=== PATIENT | female | born 1960 | race Caucasian/White ===

== ENCOUNTER 2017-03-14 11:47 | Inpatient (IN) | payer OTHER, MEDICARE ==
[~2017-03-14] VITALS: Ht 175.3 cm; Wt 61.9 kg
[2017-03-14] VITALS (10 sets, daily range): BP systolic 93–138; BP diastolic 43–80
--- NOTE | ~2017-03-14 | EKG ---
[address] [address] ELECTROCARDIOGRAM REPORT Name: DANY SYED Room #: 170-11 ADM IN M.R.#: [id number] Admission: 03/14/17 Attend Phys: Cayden Prather MD Discharge: Date of : 62 Report #: [id number] THIS REPORT FOR: //name// [facility] ED Test Date: 2017-03-14 Test Time: 13:36:52 Pat Name: DANY SYED Department: Room: 170 Gender: F Strategic Sourcing Manager: Jayy ARTEAGA : 1960 Requested By: Odessa Ivy Order Number: [id number] MD: Mal Weber Measurements Intervals [place] Rate: 65 P: 56 FL: 164 QRS: 87 QRSD: 105 T: 29 QT: 462 QTc: 481 Interpretive Statements Sinus rhythm Probable left atrial enlargement Low voltage, extremity leads Nonspecific T abnrm, anterolateral leads Compared to ECG 02/05/2016 14:58:59 Low QRS voltage now present Electronically Signed On 03-14-2017 15:47:18 SEMICONDUCTOR WAFERS SAW OPERATOR by Mal Weber [email or web address] <ELECTRONICALLY SIGNED> By: Mal Weber MD 03/14/17 1547 1336 1336 Mal Weber MD /EPI
--- NOTE | ~2017-03-14 | HC ---
[facility] [address] [place] [address] CONSULTATION Name: DANY SYED Room #: 444-P ADM IN M.R.#: [id number] Admission: 03/14/17 Attend Phys: Cayden Prather MD Discharge: Date of : 62 Report #: [id number] THIS REPORT FOR: //name// CC: FAM unknown Cayden Prather DATE OF SERVICE: 03/15/[address] Prather, [facility] ICU, Room 239. SUBJECTIVE: A 56-year-old white female with a long history of diabetes mellitus. The patient was extremely angry and somewhat antagonist poor historian. She states she has had diabetes for 20-30 years and has been on insulin the entire time. She is supposed to be on a sliding scale of rapid-acting insulin with meals and 20 units of Glargine at bedtime. However, she states that she has not taken her insulin recently because she has not been eating. She also has missed several dialysis appointments. It is not clear how long she has been on dialysis. Apparently compliance is a chronic problem according to the chart and prior notes. The patient is unable to provide much information regarding diet, activity, treatment, blood sugars, hemoglobin A1c or any other helpful medical history. She is also quite antagonistic when asked to provide information about her diabetes, stating that she is more capable of controlling her diabetes than any of the physicians in the Medical Center. Since admission, the patient has been treated with limited IV fluids because of her renal failure and intravenous insulin with a drop in glucose from approximately 700 down to as low as 20. She has not received any insulin since this morning while blood sugars have increased up into the 300 range. CURRENT MEDICATIONS: At the time of consultation included metoclopramide, promethazine, hydrocodone/acetaminophen, polyethylene glycol, ondansetron, insulin as mentioned above, sodium bicarbonate and possibly other medication. Otherwise, I am unable to provide any further useful medical history. OBJECTIVE: LABORATORY DATA: From earlier today, glucose at the time of admission was approximately 729, and decreased significantly with intravenous insulin. Most recent lab shows sodium 133, potassium 4.8, chloride 97, and CO2 23. Initial arterial pH was 7.208. No serum ketone level was drawn. PHYSICAL EXAMINATION: Thin, 56-year-old white female, in no acute distress, but somewhat antagonistic. The patient is afebrile. Heart rate 65 and regular, blood pressure 117/62. Height and weight are yet to be determined. Exam is [address] [address] CONSULTATION Name: DANY SYED Room #: 444-P [facility] IN [facility]#: [id number] Admission: 03/14/17 Attend Phys: Cayden Prather MD Discharge: Date of : 62 Report #: [id number] difficult due to lack of patient cooperation and her irritability. ASSESSMENT: 1. Diabetes mellitus, out of control due to poor compliance. The patient was admitted with acidosis and most likely ketoacidosis due to poor compliance, negligence, etc. 2. Complications of diabetes including chronic renal failure, on dialysis, although patient has missed the last several scheduled dialysis. 3. Chronic poor compliance and antagonism. PLAN: 1. Will attempt to evaluate prior control with hemoglobin A1c and fructosamine. Will also check to see whether the patient is making endogenous insulin with C-peptide. 2. Will attempt to readjust insulin to improve glucose control, although it is not clear how much patient opposition will complicate that process and whether she will allow me to use my expertise in an attempt to control blood sugars or not. Hopefully, she will allow good medical science to win and out over her preconceived ideas. Thank you very much for this consultation. I will continue to follow the patient with you for attempted management of diabetes mellitus. <ELECTRONICALLY SIGNED> By: Adair Dunne MD 03/16/17 0939 1720 [id number] Adair Dunne MD /nt
--- NOTE | ~2017-03-14 | HC ---
[facility] [place] [address] [place] [address] CONSULTATION Name: DANY SYED Room #: 444-P ADM IN M.R.#: [id number] Admission: 03/14/17 Attend Phys: Cayden Prather MD Discharge: Date of : 62 Report #: [id number] THIS REPORT FOR: //name// CC: Dr. Remy Castro [facility] Jadon Izquierdo MD PHYSICIAN REQUESTING CONSULTATION: Cayden Prather M.D. REASON FOR CONSULTATION: History of breast cancer. HISTORY OF PRESENT ILLNESS: The patient is a very pleasant 56-year-old female with a history of stage III node-positive, ER/NC negative, HER-2 positive breast cancer, who was admitted with a febrile illness with 2-3 days of fever, nausea, vomiting, diarrhea and sugars out of control. The patient was admitted through the Emergency Room. She had completed her last dose of Herceptin antibody portion of her chemotherapy about 2 weeks ago. She denied any new headache, any mouth sores, any bleeding, any new skin rash or any new arm or leg swelling. She feels like maybe she caught something from someone at the dialysis clinic. She is currently in the ICU at [facility]. PAST MEDICAL HISTORY: Past history is notable for the history of the breast cancer, originally diagnosed in 07/2015 at [facility] with an ultrasound-guided biopsy. The tumor, as mentioned, was ER/NC negative, HER-2 positive with a Ki-67 of 73.7%. She had bilateral mastectomies in 07/2015 with a finding of 5 of 11 lymph nodes involved by cancer and tumor size of 60 mm. She began Taxol, Herceptin and Perjeta approximately 11/18/2015. Her last dose of cytotoxic chemotherapy was around 02/12/2016. She had a completion axillary lymph node dissection in 03/2016, without finding any more cancer. She continued Herceptin. She completed radiation therapy on 08/19/2016. Her last dose of Herceptin, I believe, was on 03/03/2017. She also has a history of hyperparathyroidism and has declined parathyroidectomy. 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 She also has a history of chronic renal disease, requiring chronic dialysis. In the past, she had been on peritoneal dialysis and also the transplant, but has been back on hemodialysis for, I believe, about 5 years. Also history of essential hypertension, gastroparesis and right upper extremity lymphedema. SOCIAL HISTORY: Not currently working. Nonsmoker. Rare alcohol. Lives alone. FAMILY HISTORY: Diabetes. [address] [address] CONSULTATION Name: DANY SYED LANEY Room #: 444-P [facility] IN M.R.#: [id number] Admission: 03/14/17 Attend Phys: Cayden Prather MD Discharge: Date of : 62 Report #: [id number] MEDICATIONS: Medications at this time in the hospital currently include metoclopramide 5 mg a.c. and at bedtime p.o., promethazine p.r.n., heparin 5000 units b.i.d. subQ, hydrocodone p.r.n., Tylenol p.r.n., MiraLax daily and Zofran p.r.n. PHYSICAL EXAMINATION: GENERAL: The patient appears her stated age. She is currently in the ICU. VITAL SIGNS: Height is 5 feet 9, 175.3 cm. Weight is 136 pounds or 61.86 kilograms. She has been afebrile since she has been here since about noon yesterday. Recent blood pressure 117/60, O2 sat 100%, respirations 17 and pulse 65. MOOD: She is pleasant and conversant. NEUROLOGIC: Speech pattern normal. Moving extremities. LUNGS: Appear to be clear, symmetric expansion. HEART: Regular rate. ABDOMEN: Nontender. EXTREMITIES: Have some trace edema. LABORATORY DATA: Lab review shows a BUN of 85 and creatinine 11.1. AST of 56, total bilirubin 0.5, phosphorus 6.9, alkaline phosphatase 108 and ALT 29. Albumin 2.6. Lactic acid 1.2. White blood count on admission 5.5, hemoglobin 8.7, MCV 94.4 and platelets 166,000. Differential does not appear with any acute forms. U/A not available. Chest x-ray showed no acute changes. ASSESSMENT AND PLAN: 1. History of stage III, ER/NC negative, HER-2 positive breast cancer, has now completed both cytotoxic chemotherapy, radiation therapy and most recently a year of Herceptin. No indication for anti-hormone therapy, not known to be recurrent. Continue surveillance monitoring. 2. Febrile illness with nausea, vomiting and hyperglycemia. Defer management of the electrolytes and fluid replacement per others. Afebrile here and not currently on antibiotics. 3. Hypertension. Medications per others. 4. Renal failure. Continue hemodialysis per others. 5. Hyperparathyroidism. Defer management to others. 6. Anemia. At this point has been managed with transfusions, avoiding erythropoietin because of potential higher cancer recurrence with its use. We will follow with you. <ELECTRONICALLY SIGNED> By: Bakari Marmolejo MD 03/16/17 0801 0845 09 Bakari Marmolejo MD /maria elena
--- NOTE | ~2017-03-14 | HC ---
[facility] [address] [place] [address] CONSULTATION Name: DANY SYED Room #: 444-P [facility] IN M.R.#: [id number] Admission: 03/14/17 Attend Phys: Cayden Prather MD Discharge: 03/18/17 Date of : 62 Report #: [id number] THIS REPORT FOR: //name// CC: [facility] FAM unknown Cayden Marmolejo MD DATE OF SERVICE: 03/14/2017 NEPHROLOGY CONSULTATION REASON FOR CONSULTATION: End-stage renal disease. HISTORY OF PRESENT ILLNESS: This is a 56-year-old female who has a very complex medical history. She came into the Emergency Room today because of recurring nausea and vomiting. She says this was occurring frequently over the past several days. She also had intermittent diarrhea. She had a course of fevers and chills. She has had some mild cough. In the Emergency Room, influenza was negative. She has a long history of type 1 diabetes mellitus and has always been insulin-dependent. Because she felt bad, she was not checking her sugars and she was not taking any insulin. In the Emergency Room, she presented with a glucose of 729. She was started on an insulin drip. Blood pressure was actually on the low side running 102/64, although her heart rate was only 62. She was given about 1.7 liters of IV fluids. Blood pressure is better now and heart rate is good. She is oxygenating adequately. The patient also has end-stage renal disease. She is a chronic hemodialysis patient. She last dialyzed on 03/09/2017. She missed dialysis on 03/11/2017. She was scheduled today. She said she just felt too sick to come in for dialysis at the last treatment of last week. She dialyzes using a right internal jugular vein tunneled dialysis catheter, which has been in for a number of years. Unfortunately, she has refused to get a peripheral access. She has escaped major infection complications of that catheter. Her dialysis is highlighted by the fact that she does not like fluid removal. She runs very high pressure much of the time, often times 170-190 systolic or higher at dialysis and still refuses fluid removal. She has historically poor compliance with diet and medications. In fact, she will not take any phosphate binders and she always runs a high phosphorus level. She also has a history of a kidney pancreas transplant many years ago. Both of those have now failed. She is back on insulin. She is back on dialysis. She is fully anuric. PAST MEDICAL HISTORY: Type 1 diabetes as noted above complicated by severe retinopathy, peripheral neuropathy, gastroparesis. Obviously, the diabetic [facility] [address] [place] [address] CONSULTATION Name: KUNALDANY LANEY Room #: 444-P [facility] IN M.R.#: [id number] Admission: 03/14/17 Attend Phys: Cayden Prather MD Discharge: 03/18/17 Date of : 62 Report #: [id number] nephropathy leading to original peritoneal dialysis, then the kidney pancreas transplant and now back on hemodialysis. More recently, she has been suffering from breast cancer. She has had bilateral mastectomies done at [facility]. She had a course of radiation therapy. Now, she has been getting some chemotherapy with Dr. Marmolejo with Herceptin. Her last dose was early last week, which would be about 1 week ago now. She has severe hypertension. She has severe hyperphosphatemia and severe secondary hyperparathyroidism. Again, she does not want to take phosphate binders. We have talked about getting a parathyroidectomy done. She also has anemia related to her end-stage renal disease because of the concerns of mitogenic properties of erythropoiesis stimulating agents, she does not want to take those, so she gets occasional transfusions. MEDICATIONS ON ADMISSION: Include some Lantus and some Humalog, which she takes on a variable scale and obviously has not taken any recently. She takes some Xanax p.r.n. She takes some Pepcid 20 mg. She was getting some Hectorol 4 mg 3 times a week IV at dialysis in addition to the Herceptin. ALLERGIES AND INTOLERANCES: NONE ACTUALLY, ALTHOUGH SHE CLAIMS EPINEPHRINE CAUSES HER HEART TO RACE ( ONE WOULD EXPECT). FAMILY HISTORY: Positive for diabetes in her father. SOCIAL HISTORY: The patient is single, lives in [place], [place]. She has been medically disabled with all these recent problems. She is a nonsmoker. REVIEW OF SYSTEMS: Started feeling worse about 4 days ago for symptoms were some mild cough, fever, nausea, vomiting, intermittent diarrhea and this has left her very weak and fatigued. She has been battling a long course of treatment for her breast cancer. This has left her very weak. She is not nearly as active as she used to be. Over the weekend, she has had little intake of food and fluids. She had the fever and chills as noted above. No overt blood loss. She reports she has some swelling in her right arm that she associates with some lymphedema since her mastectomy. She also had some skin reactions on both forearms, which have been kind of an irritating rash with some eschar developed. PHYSICAL EXAMINATION: GENERAL: Acutely ill appearing female seen in the Intensive Care Unit. VITAL SIGNS: Most recent blood pressure 138/71, heart rate 68, oxygen saturation 97%, respiratory rate 16. HEENT: Shows pupils are 2 mm, reactive. Sclerae nonicteric. Oral mucosa is moist at this time. I see no lesions. NECK: Supple. She has a right internal jugular vein tunneled dialysis catheter in place. She has a left-sided infusion port in place on the left chest. CHEST: Lungs are fairly clear bilaterally. [facility] [address] [place] [address] CONSULTATION Name: DANY SYED Room #: 444-P [facility] IN [facility].#: [id number] Admission: 03/14/17 Attend Phys: Cayden Prather MD Discharge: 03/18/17 Date of : 62 Report #: [id number] CARDIOVASCULAR: Heart has a regular rate and rhythm. Bilateral mastectomies are present. ABDOMEN: Bowel sounds are diminished. No overt point tenderness, guarding or rebound. EXTREMITIES: Show no peripheral edema. She has absent pedal pulses. NEUROLOGIC: She is awake, alert and reactive. Recognizes me immediately, has been lethargic. LABORATORY DATA: On presentation, sodium 126, potassium 5.5, chloride 87, bicarb 16, BUN 85, creatinine 11.1, glucose 729. After some IV insulin, sodium 130, potassium 4.2, chloride 102, bicarb 19 and glucose down to 672 and it is lower than that now. Calcium 6.8, phosphorus 8.4, magnesium 2.5, total protein 6.4, albumin 2.9. Hemoglobin 8.1; hematocrit 24.7; white count 5.5; platelets 156,000. Blood gas: The pH 7.21, pCO2 of 40.7, pO2 of 89.2. Lactate 1.54. ASSESSMENT: 1. Severe hyperglycemia in this type 1 diabetic. She does have some acidosis. Part of it is related to her high glucose. Part of it is related to her end-stage renal disease and lack of dialysis. She had associated hyperkalemia and hyponatremia with that. Both of those are actually correcting with insulin treatment and her sugar coming down. This patient is anuric. She has already gotten some volume. Blood pressure is good. Volume is fine on exam. Because she is anuric, she does not need additional aggressive intravenous fluid replacement. If her blood pressure drops, that would certainly be appropriate, but at this point, her blood pressure is good. She needs a continuous insulin infusion to correct her hyperglycemia. 2. End-stage renal disease, fine on dialysis. We will contact the dialysis nurse. I need to get her dialyzed late tonight or first thing in the morning. She is not in extremis. She is oxygenating well. Again, blood pressure is fairly good for her. So, we will make that choice and get those orders in. 3. Viral illness with recent fevers, chills, cough, nausea, vomiting, diarrhea. Most of those symptoms are all improving at this time. Influenza A and B were negative in the Emergency Room. She seems to be on the improving side of the viral illness. 4. Long-standing diabetes mellitus with severe peripheral neuropathy and gastroparesis. The gastroparesis has resulted in prior hospitalizations with recurrent vomiting. She was given Zofran. If I recall, she has not had a good response to Reglan in the past, although we may need to try most of the Zofran as long as possible. 5. Breast cancer, currently getting Herceptin. She has had bilateral mastectomies and radiation therapy. 6. Anemia, transfusion dependent at this point. She is refusing the erythropoietin due to potential mitogenic factors. Does not need transfusion at this time, although if she dilutes out at all, she may need transfusion. 7. Hypertension, long-standing, severe and always volume related, although she has refused to get volume off with dialysis. Blood pressure is remarkably good [facility] [address] [place] [address] CONSULTATION Name: DANY SYED Room #: 444-P [facility] IN M.R.#: [id number] Admission: 03/14/17 Attend Phys: Cayden Prather MD Discharge: 03/18/17 Date of : 62 Report #: [id number] at this time, so we will try to leave around this volume. 8. Severe hyperphosphatemia and secondary hyperparathyroidism, ongoing alcantar with her as far as treatment of this. 9. Prior kidney pancreas transplant, neither organ are active at this time. No longer on immunosuppression. PLAN: 1. We will stop her IV fluids given p.r.n. hypotension. 2. Continue insulin infusion, closely watch sugars. 3. Dialysis several days in a row to catch up on her dialysis needs. 4. Watch for need for transfusion. 5. We will follow along closely in the care of this very ill individual. <ELECTRONICALLY SIGNED> By: Magnus Kim MD 03/21/17 0721 1826 0410 Magnus Kim MD /nt
--- NOTE | ~2017-03-14 | EKG ---
[address] [place] [address] ELECTROCARDIOGRAM REPORT Name: DANY SYED Room #: 444-P [facility] IN M.R.#: [id number] Admission: 03/14/17 Attend Phys: Cayden Prather MD Discharge: Date of : 62 Report #: [id number] THIS REPORT FOR: //name// [facility] Test Date: 2017-03-15 Test Time: 09:34:47 Pat Name: DANY SYED Department: Room: 444 Gender: F Physical Integration Practitioner: FLOR : 1960 Requested By: Mal Weber Order Number: [id number] MD: Bradly Escobar Measurements Intervals [place] Rate: 66 P: 59 [place]: 144 QRS: 23 QRSD: 97 T: 33 QT: 467 QTc: 490 Interpretive Statements Sinus rhythm Ventricular premature complex Low voltage, extremity leads Borderline prolonged QT interval Baseline wander in lead(s) V5 Compared to ECG 03/14/2017 13:36:52 Ventricular premature complex(es) now present Electronically Signed On 03-16-2017 8:52:51 GRAPHIC USER INTERFACE DESIGNER by Bradly Escobar [email or web address] <ELECTRONICALLY SIGNED> By: Bradly Escobar MD, [facility] 03/16/17 0852 0934 0934 Bradly Escobar MD, [facility] /EPI
--- NOTE | ~2017-03-14 | 2DMMODE ---
[facility] [address] [place] [address] 2 D/M-MODE ECHOCARDIOGRAM Name: DANY SYED Room #: 170-11 ADM IN M.R.#: [id number] Admission: 03/14/17 Attend Phys: Cayden Prather MD Discharge: Date of : 62 Date of Service: 03/14/17 1537 Report #: [id number] THIS REPORT FOR: //name// APPROVED REPORT Study performed: 03/14/2017 14:44:18 EXAM: Comprehensive 2D, Doppler, and color-flow Echocardiogram Patient Location: ER Room #: 11 Status: routine BSA: 1.70 HR: 68 bpm BP: 108/71 mmHg Rhythm: NSR Other Information Study Quality: Good Indications Elevated BNP, short of air, elevated troponin. DM, HTN. 2D Dimensions RVDd: 43.62 mm LVEF(%): 74.04 (>50%) IVSd: 12.13 (7-11mm) LVOT Diam: 19.11 (18-24mm) LVDd: 43.88 mm PWd: 13.01 (7-11mm) LVDs: 25.13 (25-40mm) Aortic Root: 28.93 mm Suero's LVEF: 74.04 % Volumes Left Atrial Volume (Systole) Single Plane 4CH: 71.21 mL Single Plane 2CH: 58.04 mL LA ESV Index: 41.00 mL/m2 Aortic Valve AoV Peak Celso.: 1.72 m/s AO Peak Gr.: 11.78 mmHg LVOT Max P.56 mmHg LVOT Max V: 1.46 m/s AYUSH Vmax: 2.44 cm2 Mitral Valve E/A Ratio: 1.3 MV Decel. Time: 240.18 ms [facility] [place] [address] 2 D/M-MODE ECHOCARDIOGRAM Name: DANY SYED LANEY Room #: 170- ADM IN M.R.#: [id number] Admission: 03/14/17 Attend Phys: Cayden Prather MD Discharge: Date of : 62 Date of Service: 03/14/17 1537 Report #: [id number] MV E Max Celso.: 0.89 m/s MV A Celso.: 0.67 m/s MV PHT: 69.65 ms IVRT: 83.04 ms Pulmonary Valve PV Peak Celso.: 0.90 m/s PV Peak Gr.: 3.27 mmHg Pulmonary Vein P Vein S: 0.49 m/s P Vein D: 0.27 m/s P Vein S/D Ratio: 1.81 Tricuspid Valve TR Peak Celso.: 2.69 m/s RAP Estimate: 10.00 mmHg TR Peak Gr.: 29.01 mmHg PA Pressure: 39.00 mmHg Left Ventricle The left ventricle is normal size. There is normal LV segmental wall motion. Mild concentric left ventricular hypertrophy. Left ventricular systolic function is normal. LVEF is 65%. The left ventricular diastolic function is normal. Right Ventricle The right ventricle is normal size. The right ventricular systolic function is normal. Atria Left atrium is mild to moderately dilated. Right atrium is mildly dilated. Catheter is present in the right atrium. Aortic Valve Aortic valve is mildly calcified. No aortic regurgitation is present. There is no aortic valvular stenosis. Mitral Valve Mild mitral annular calcification. Trace mitral regurgitation. Tricuspid Valve The tricuspid valve is normal in structure. Moderate tricuspid regurgitation. Estimated PAP is 40mmHg. Pulmonic Valve The pulmonary valve is normal in structure. There [place] [address] 2 D/M-MODE ECHOCARDIOGRAM Name: DANY SYED Room #: 170-11 ADM IN M.R.#: [id number] Admission: 03/14/17 Attend Phys: Cayden Prather MD Discharge: Date of : 62 Date of Service: 03/14/17 1537 Report #: [id number] valvular regurgitation. Great Vessels The aortic root is normal in size. Ascending aorta is not well visualized. IVC is dilated and collapses >50% with inspiration. Pericardium There is no pericardial effusion. <Conclusion> Left ventricular systolic function is normal. There is normal LV segmental wall motion. Mild concentric left ventricular hypertrophy. LVEF 65%. Both atria are mildly dilated. Catheter is present in the right atrium. Aortic valve is mildly calcified. No aortic regurgitation or stenosis Mild mitral annular calcification. Trace mitral regurgitation. Moderate tricuspid regurgitation. Estimated pulmonary artery pressure is 40mmHg. There is no pericardial effusion. <ELECTRONICALLY SIGNED> By: Bradly Escobar MD, FACC 03/14/17 1537 [id number] Bradly Escobar MD, FACC /INF
[~2017-03-14 11:47] MED LIST: AMLODIPINE BESYL5 MG PO; ANTACID650 MG PO; BIOTIN1000 MCG PO; CELLCEPT 250 M250 M1 PO; CELLCEPT500 MG PO; CIPROFLOXACIN500 M1 PO; COREG6.25 MG PO; CYCLOBENZAPRINE5 MG PO; CYCLOSPORINE25 M1 PO; DIOVAN160 MG PO; DULCOLAX STOOL100 MG PO; KEFLEX500 MG PO; LASIX 40 MG TAB40 M1 PO; LEVEMIR SQ; LEVEMIR SUBQ; NEORAL100 MG PO; NEPHROCAPS SOFT1 CAP PO; NORVASC 5 MG TAB5 MG PO; NOVOLOG100 UNIT/1; NOVOLOG100 UNIT/1 SQ; PAIN & FEVER325 MG PO; PREDNISONE 5 MG5 M1 PO; REGLAN 10 MG TA10 MG PO; RENVELA800 MG PO; ULTRAM 50MG TAB50 MG PO; ZOFRAN ODT4 MG PO; [UNRECOGNIZED DRUG - OTHER] PO
[2017-03-14 13:01] LABS: ABSOLUTE NEUTROPHILS 4.2 thou/uL (1.4-8.2); BASOPHILS 0.4 % (0.0-2.0); HEMATOCRIT 24.7 % (37.0-47.0); HEMOGLOBIN 8.1 gm/dL (12.0-15.0); LYMPHOCYTES 15.7 % (24.0-44.0); MCH 32.5 pg (26.0-34.0); MCV 98.6 fL (80.0-100.0); PLATELET COUNT 156 thou/uL (150-400); POLYS 75.9 % (36.0-66.0); RDW 13.8 % (10.5-14.5); WBC 5.5 thou/uL (4.0-11.0)
[2017-03-14 13:14] LABS: CALCIUM 6.9 mg/dL (8.5-10.1); CREATININE 11.1 mg/dL (0.6-1.0); POTASSIUM 5.5 mmol/L (3.5-5.1)
[2017-03-14 13:17] LABS: TOTAL BILIRUBIN 0.5 mg/dL (<0.1-1.0); TOTAL PROTEIN 6.4 g/dL (6.4-8.2)
[2017-03-14 14:43] LABS: CHOLESTEROL 116 mg/dL (<200); HDL CHOLESTEROL 27 mg/dL (>40); LDL CHOLESTEROL 30 mg/dL (<100); TC:HDL 4.3 Ratio (Not establshd); TRIGLYCERIDE 296 mg/dL (<150); VLDL 59 mg/dL (<40)
[2017-03-14 14:47] LABS: SERUM ASSESSMENT Clear
[2017-03-14] MEDS ORDERED: LANTUS SUBQ (15:28)
[2017-03-14 16:44] LABS: BE(vivo) -11.2 mmol/L (-2 to +3); HCO3 15.8 mmol/L (22.0-26.0); PCO2 40.7 mmHg (35.0-45.0); PO2 89.2 mmHg (80.0-100.0); pH 7.208 (7.360-7.450)
[2017-03-14 17:12] LABS: ALBUMIN 2.9 g/dL (3.4-5.0); CALCIUM 6.8 mg/dL (8.5-10.1); PHOSPHORUS 8.4 mg/dL (2.5-4.9); POTASSIUM 4.2 mmol/L (3.5-5.1)
[2017-03-15] VITALS (15 sets, daily range): BP systolic 95–174; BP diastolic 55–84
[2017-03-15 05:15] LABS: HEMATOCRIT 25.7 % (37.0-47.0); HEMOGLOBIN 8.7 gm/dL (12.0-15.0); MCHC 33.9 g/dL (28.0-37.0); MCV 94.4 fL (80.0-100.0); RBC 2.72 mil/uL (4.20-5.00); RDW 13.3 % (10.5-14.5); WBC 6.4 thou/uL (4.0-11.0)
[2017-03-15 05:24] LABS: ALBUMIN 2.6 g/dL (3.4-5.0); CREATININE 11.4 mg/dL (0.6-1.0); PHOSPHORUS 6.9 mg/dL (2.5-4.9)
[2017-03-16 03:00] VITALS: BP 193/94
[2017-03-16 07:52] LABS: ABSOLUTE NEUTROPHILS 4.1 thou/uL (1.4-8.2); BASOPHILS 0.4 % (0.0-2.0); HEMATOCRIT 23.2 % (37.0-47.0); HEMOGLOBIN 7.8 gm/dL (12.0-15.0); LYMPHOCYTES 15.8 % (24.0-44.0); MCH 31.8 pg (26.0-34.0); MCHC 33.4 g/dL (28.0-37.0); MONOCYTES 9.7 % (1.0-8.0); PLATELET COUNT 143 thou/uL (150-400); POLYS 74.1 % (36.0-66.0); RBC 2.44 mil/uL (4.20-5.00); RDW 13.6 % (10.5-14.5); WBC 5.6 thou/uL (4.0-11.0)
[2017-03-16 08:00] LABS: ALBUMIN 2.8 g/dL (3.4-5.0); CALCIUM 7.5 mg/dL (8.5-10.1); CREATININE 6.5 mg/dL (0.6-1.0); PHOSPHORUS 4.5 mg/dL (2.5-4.9); POTASSIUM 3.7 mmol/L (3.5-5.1)
[2017-03-16 09:55] VITALS: BP 148/87
[2017-03-16 17:43] VITALS: BP 182/99
[2017-03-16 19:12] VITALS: BP 178/106
[2017-03-17 04:01] VITALS: BP 187/105
[2017-03-17 06:41] VITALS: BP 166/96
[2017-03-17 08:26] VITALS: BP 171/107
[2017-03-17] MEDS ORDERED: LOPERAMIDE 2 MG2 M1 PO (13:48)
[2017-03-17] MEDS ORDERED: NEPHROCAPS SOFT1 CAP PO (13:55)
[2017-03-17 15:53] VITALS: BP 139/84
[2017-03-17 20:19] VITALS: BP 130/55
[2017-03-18 04:40] VITALS: BP 160/86
[2017-03-18 08:00] VITALS: BP 148/85
[2017-03-18 16:00] VITALS: BP 148/77
[2017-03-18 18:31] VITALS: BP 148/77
== END 2017-03-18 18:44 | DRG 291 ==
LOC: ER 11:47 → ICU 13:56 → EROBS 13:56 → ICU 16:06 → 4S 03-15 18:20
PROVIDERS: Hospitalist; Internal Medicine Cardiovascular Disease; Internal Medicine Nephrology; Physician Assistant
PROC: 5A1D70Z Performance of Urinary Filtration, Intermittent, Less than 6 Hours Per Day (ICD-10-PCS; principal; 2017-03-14)
PROC: 5A1D70Z Performance of Urinary Filtration, Intermittent, Less than 6 Hours Per Day (ICD-10-PCS; 2017-03-15)
PROC: 5A1D70Z Performance of Urinary Filtration, Intermittent, Less than 6 Hours Per Day (ICD-10-PCS; 2017-03-17)
DX: I13.2 Hypertensive heart and chronic kidney disease with heart failure and with stage 5 chronic kidney disease, or end stage renal disease (principal); E10.10 Type 1 diabetes mellitus with ketoacidosis without coma; N18.6 End stage renal disease; E87.1 Hypo-osmolality and hyponatremia; N25.81 Secondary hyperparathyroidism of renal origin; Z94.83 Pancreas transplant status; Z94.0 Kidney transplant status; D64.9 Anemia, unspecified; E87.70 Fluid overload, unspecified; E83.51 Hypocalcemia; J20.8 Acute bronchitis due to other specified organisms; E87.5 Hyperkalemia; E10.43 Type 1 diabetes mellitus with diabetic autonomic (poly)neuropathy; K31.84 Gastroparesis; E83.39 Other disorders of phosphorus metabolism; Z60.2 Problems related to living alone; E10.319 Type 1 diabetes mellitus with unspecified diabetic retinopathy without macular edema; I50.9 Heart failure, unspecified; K21.9 Gastro-esophageal reflux disease without esophagitis; I95.1 Orthostatic hypotension; E10.22 Type 1 diabetes mellitus with diabetic chronic kidney disease; Z79.4 Long term (current) use of insulin; Z85.3 Personal history of malignant neoplasm of breast; Z90.13 Acquired absence of bilateral breasts and nipples; Z88.8 Allergy status to other drugs, medicaments and biological substances; Z83.3 Family history of diabetes mellitus; Z79.82 Long term (current) use of aspirin; Z79.899 Other long term (current) drug therapy; Z92.21 Personal history of antineoplastic chemotherapy; Z92.3 Personal history of irradiation
CPT/HCPCS: 10078; 10102; 32100

== ENCOUNTER 2017-05-30 17:45 | Emergency (ER) | payer OTHER, MEDICARE ==
[~2017-05-30] VITALS: Ht 175.3 cm; Wt 60.8 kg
[~2017-05-30 17:45] MED LIST changes: +LANTUS SUBQ; +LOPERAMIDE 2 MG2 M1 PO
[2017-05-30 17:52] VITALS: BP 172/109
[2017-05-30 18:19] LABS: HEMATOCRIT 25.5 % (37.0-47.0); HEMOGLOBIN 8.8 gm/dL (12.0-15.0); MCH 33.2 pg (26.0-34.0); MCHC 34.6 g/dL (28.0-37.0); PLATELET COUNT 240 thou/uL (150-400); RBC 2.66 mil/uL (4.20-5.00); RDW 15.9 % (10.5-14.5); WBC 5.3 thou/uL (4.0-11.0)
[2017-05-30 18:30] LABS: CALCIUM 8.2 mg/dL (8.5-10.1); CREATININE 3.9 mg/dL (0.6-1.0); POTASSIUM 4.9 mmol/L (3.5-5.1)
[2017-05-30 18:36] LABS: ALBUMIN 3.1 g/dL (3.4-5.0); DIRECT BILIRUBIN 0.1 mg/dL (<0.1-0.3); TOTAL BILIRUBIN 0.5 mg/dL (<0.1-1.0); TOTAL PROTEIN 7.2 g/dL (6.4-8.2)
[2017-05-30 18:43] LABS: ABSOLUTE NEUTROPHILS 3.6 thou/uL (1.4-8.2)
[2017-05-30 18:44] LABS: ANISOCYTOSIS 1+; POLYCHROMASIA SLIGHT
[2017-05-30 21:39] VITALS: BP 112/76
== END 2017-05-30 21:42 | disposition home or self-care (01) ==
LOC: ER 17:45 → EROBS 21:04 → ER 21:04
PROVIDERS: Emergency Medicine
DX: R41.82 Altered mental status, unspecified (principal); R53.1 Weakness; R60.0 Localized edema; N18.6 End stage renal disease; E10.22 Type 1 diabetes mellitus with diabetic chronic kidney disease; E10.42 Type 1 diabetes mellitus with diabetic polyneuropathy; I12.0 Hypertensive chronic kidney disease with stage 5 chronic kidney disease or end stage renal disease; Z99.2 Dependence on renal dialysis; Z85.3 Personal history of malignant neoplasm of breast; Z88.8 Allergy status to other drugs, medicaments and biological substances

== ENCOUNTER 2017-06-01 14:30 | Inpatient (IN) | payer OTHER, MEDICARE ==
[~2017-06-01] VITALS: Ht 175.3 cm; Wt 61.1 kg
--- NOTE | ~2017-06-01 | HC ---
[facility] [place] [address] CONSULTATION Name: DANY SYED Room #: 200-I [facility] IN M.R.#: [id number] Admission: 06/01/17 Attend Phys: Cayden Prather MD Discharge: 06/05/17 Date of : 62 Report #: [id number] THIS REPORT FOR: //name// CC: Jadon Prather DATE OF SERVICE: 06/01/2017 REASON FOR CONSULTATION: End-stage renal disease. HISTORY OF PRESENT ILLNESS: This is a 57-year-old female who presented today to the Emergency Room with weakness. The patient is well known to our service. In fact, she was just in the hospital most recently on 03/14/2017 for a several day stay. I saw her in consultation at that time. At that time, she had stopped her insulin and her blood sugars were up to 729. She has longstanding type 1 diabetes mellitus. She has end-stage renal disease. She cut her dialysis short by about an hour and a half, two days ago on 05/30/2017. She missed dialysis today. I have checked with the dialysis unit. She did show up for dialysis on 05/27/2017. She has had progressively large volume increases due to intake. She has been taking 4 liters or more off per dialysis treatment. In spite of that, her blood pressure tends to run very high. She tells me she has had increasing amounts of edema in her right arm, although at first she wanted to deny this, but it was obvious on exam that she had been having more edema. She has dyspnea, although she is lying fairly flat at this time. She has had increasing weakness of her lower extremities. In reviewing things, she was also in the Emergency Room 2 days ago, but left without getting admitted in spite of the recommendation that she get admitted. She had also signed out from dialysis earlier that afternoon. PAST MEDICAL HISTORY: Type 1 diabetes mellitus since her teenage years. Hence, she has had 40 years of type 1 diabetes. She suffered her end-stage renal disease. She had a previous kidney transplant, but that is no longer functioning. 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 She has severe retinopathy, peripheral neuropathy, gastroparesis and also some autonomic neuropathy. The diabetes mellitus was the etiology of her end-stage renal disease. She has had breast cancer with bilateral mastectomies. She had radiation therapy and a course of Herceptin. She is now off of all treatment for her breast cancer. She has anemia of end-stage renal disease. It has just been in the past few weeks after years of anemia that she has agreed to be on an erythropoietin stimulating agent. She has severe secondary hyperparathyroidism and severe hyperphosphatemia. She does not take phosphate binders. She has so far declined the option to get a parathyroidectomy done. In spite of this she is having increasing joint and bone pain. [address] [address] CONSULTATION Name: DANY SYED Room #: 200-I [facility] IN M.R.#: [id number] Admission: 06/01/17 Attend Phys: Cayden Prather MD Discharge: 06/05/17 Date of : 62 Report #: [id number] MEDICATIONS: Include her insulin. Also amlodipine 10 mg daily, carvedilol 12.5 mg b.i.d., Hectorol at dialysis and erythropoietin at dialysis. ALLERGIES: No known medical allergies. FAMILY HISTORY: Positive for diabetes in her father. SOCIAL HISTORY: The patient is single, lives in [place], [place]. She is medically disabled. She has several friends who provide her additional help. REVIEW OF SYSTEMS: She has been very weak. Some difficulty getting around. She claims she is very tired just wants to sleep. Sugars have been up and down. She has dyspnea, but no orthopnea or PND. No cough. No chest pain. Denies headache. She has decreased visual acuity. PHYSICAL EXAMINATION: GENERAL: Chronically ill appearing female who is somewhat lethargic. When I wake her, she is able to speak in fairly normal voice, but she does drift off. I would also note she had gotten some Ativan. VITAL SIGNS: Blood pressure 158/109, heart rate 70, respiratory rate 15, temperature 98.4 degrees Fahrenheit and oxygen saturation 100%. HEENT: Shows facial fullness. Pupils are reactive. Sclerae are nonicteric. Oral mucosa is moist. She has a tunneled right internal jugular vein catheter in place. She has a port in her left chest. CHEST: Shows decreased breath sounds in the bases. Few basilar rales. HEART: Regular rate and rhythm, no gallop. ABDOMEN: Presently abdomen has active bowel sounds, although they are diminished. Abdomen is soft, nontender and not distended. EXTREMITIES: She has no lower extremity edema. She has 2+ upper extremity edema of forearm and arm and mild left upper extremity edema. IMAGING: Chest x-ray shows bilateral pleural effusions with increased vascular markings. LABORATORY DATA: Sodium 133, potassium 5.5, chloride 95, bicarbonate 21, BUN 56, creatinine 6.7, glucose 179, calcium 8.7, total protein 7.5 and albumin 3.4. White count 5.8, hemoglobin 8.9, hematocrit 25.9 and platelets 250,000. ASSESSMENT: 1. End-stage renal disease. She is under dialyzed. She missed dialysis today. In addition, she is volume overloaded. We are going to need to dialyze her several days in a row to get her caught up and to get her volume corrected. 2. Massive volume overload on exam with a right upper extremity edema, although some of this is likely central vascular occlusion from her long-term dialysis catheter, increasing pleural effusions, and blood pressure out of control. Again will need several days of dialysis with moderately aggressive [facility] [address] [place] [address] CONSULTATION Name: DANY SYED Room #: 200-I [facility] IN ..#: [id number] Admission: 06/01/17 Attend Phys: Cayden Prather MD Discharge: 06/05/17 Date of : 62 Report #: [id number] ultrafiltration. 3. Hypertension related to her volume. 4. Longstanding type 1 diabetes with full ravages of long-term type 1 diabetes. 5. Breast cancer, currently off of therapy. PLAN: 1. We will dialyze the patient first thing in the morning. We will be aggressive with ultrafiltration. We will plan on dialyzing her again the following day and probably the day after that to get the volume better corrected and get her well dialyzed. 2. senior living this continues to be a management problem. She was sent to a rehab unit after her last hospitalization, but stayed there only and exceedingly short period of time and then left and has been back home and she has continued to have failure to thrive at home. We will have to see if can find some additional options for her as currently her situation is not working out well at all. 3. Follow up on her labs. 4. We will follow along closely in the care of this patient. <ELECTRONICALLY SIGNED> By: Jadon Horner MD 06/06/17 1023 1837 0244 Magnus Kim MD /nt
--- NOTE | ~2017-06-01 | EKG ---
[place] [address] [facility] [employer] [place] [address] ELECTROCARDIOGRAM REPORT Name: DANY SYED Room #: 200-I ADM IN M.R.#: [id number] Admission: 06/01/17 Attend Phys: Cayden Prather MD Discharge: Date of : 62 Report #: [id number] THIS REPORT FOR: //name// [facility] ED Test Date: 2017-06-01 Test Time: 15:45:36 Pat Name: DANY SYED Department: Room: 200 Gender: F Attorney Recruiter: MZOOAden : 1960 Requested By: Bautista Franklin Order Number: [id number] MD: Bradly Escobar Measurements Intervals [place] Rate: 68 P: 47 UT: 154 QRS: 16 QRSD: 96 T: 64 QT: 440 QTc: 469 Interpretive Statements Sinus rhythm Low voltage, extremity leads Compared to ECG 03/15/2017 09:34:47 Ventricular premature complex(es) no longer present Electronically Signed On 06-02-2017 8:53:00 CDT by Bradly Escobar [email or web address] <ELECTRONICALLY SIGNED> By: Bradly Escobar MD, [facility] 06/02/17 0853 1545 1545 Bradly Escobar MD, [facility] /EPI
[2017-06-01 14:36] VITALS: BP 213/109
[2017-06-01 15:31] LABS: HEMATOCRIT 25.9 % (37.0-47.0); HEMOGLOBIN 8.9 gm/dL (12.0-15.0); MCH 32.5 pg (26.0-34.0); MCHC 34.3 g/dL (28.0-37.0); MCV 94.9 fL (80.0-100.0); PLATELET COUNT 250 thou/uL (150-400); RBC 2.73 mil/uL (4.20-5.00); RDW 15.6 % (10.5-14.5); WBC 5.6 thou/uL (4.0-11.0)
[2017-06-01 15:38] LABS: CALCIUM 8.7 mg/dL (8.5-10.1); CREATININE 6.7 mg/dL (0.6-1.0); POTASSIUM 5.5 mmol/L (3.5-5.1)
[2017-06-01 15:46] LABS: ALBUMIN 3.4 g/dL (3.4-5.0); TOTAL BILIRUBIN 0.5 mg/dL (<0.1-1.0); TOTAL PROTEIN 7.5 g/dL (6.4-8.2); TROPONIN-I 0.07 ng/mL (<0.06)
[2017-06-01 15:52] LABS: ABSOLUTE NEUTROPHILS 4.2 thou/uL (1.4-8.2); PLATELET ESTIMATE NORMAL
[2017-06-01 16:39] VITALS: BP 158/107
[2017-06-01 17:29] VITALS: BP 158/109
[2017-06-01 19:27] VITALS: BP 130/66
[2017-06-02 00:20] VITALS: BP 164/98
[2017-06-02 04:09] LABS: GLYCOHEMOGLOBIN (HGB A1C) 8.2 % (4.8-5.6)
[2017-06-02 05:30] VITALS: BP 187/107
[2017-06-02 05:32] LABS: ABSOLUTE NEUTROPHILS 4.4 thou/uL (1.4-8.2); BASOPHILS 0.8 % (0.0-2.0); EOSINOPHILS 0.2 % (0.0-3.0); HEMATOCRIT 27.6 % (37.0-47.0); HEMOGLOBIN 9.4 gm/dL (12.0-15.0); LYMPHOCYTES 9.3 % (24.0-44.0); MCH 32.8 pg (26.0-34.0); MCV 96.5 fL (80.0-100.0); MONOCYTES 2.2 % (1.0-8.0); PLATELET COUNT 237 thou/uL (150-400); POLYS 87.5 % (36.0-66.0); RBC 2.86 mil/uL (4.20-5.00); RDW 16.3 % (10.5-14.5)
[2017-06-02 05:45] LABS: ANION GAP 14 mmol/L (7-16); BUN 60 mg/dL (7-18); CALCIUM 8.5 mg/dL (8.5-10.1); CHLORIDE 95 mmol/L (98-107); CHOLESTEROL 191 mg/dL (<200); CO2 22 mmol/L (21-32); CREATININE 7.3 mg/dL (0.6-1.0); GLUCOSE 246 mg/dL (74-106); HDL CHOLESTEROL 65 mg/dL (>40); LDL CHOLESTEROL 99 mg/dL (<100); MAGNESIUM 2.3 mg/dL (1.8-2.4); SODIUM 131 mmol/L (136-145); TC:HDL 2.9 Ratio (Not establshd); TRIGLYCERIDE 135 mg/dL (<150); VLDL 27 mg/dL (<40)
[2017-06-02 05:52] LABS: SERUM ASSESSMENT Slight Lipemia
[2017-06-02 05:54] LABS: POTASSIUM 6.5 mmol/L (3.5-5.1)
[2017-06-02 08:12] VITALS: BP 169/92
[2017-06-02 17:09] LABS: HEP B SURFACE Ab(ANTI-HBS Non Reactive (()); HEPATITIS B SURFACE AG Negative (Negative)
[2017-06-02 17:17] VITALS: BP 143/63
[2017-06-02 17:19] VITALS: BP 159/74; BP 167/82
[2017-06-02 19:50] VITALS: BP 111/68
[2017-06-03 04:30] VITALS: BP 135/73
[2017-06-03 05:53] LABS: ABSOLUTE NEUTROPHILS 3.5 thou/uL (1.4-8.2); BASOPHILS 0.5 % (0.0-2.0); EOSINOPHILS 1.3 % (0.0-3.0); HEMATOCRIT 23.8 % (37.0-47.0); MCH 32.5 pg (26.0-34.0); MCHC 33.7 g/dL (28.0-37.0); MCV 96.6 fL (80.0-100.0); MONOCYTES 11.5 % (1.0-8.0); PLATELET COUNT 214 thou/uL (150-400); POLYS 67.7 % (36.0-66.0); RBC 2.46 mil/uL (4.20-5.00); RDW 15.9 % (10.5-14.5); WBC 5.2 thou/uL (4.0-11.0)
[2017-06-03 06:05] LABS: ALBUMIN 3.1 g/dL (3.4-5.0); CALCIUM 8.4 mg/dL (8.5-10.1); POTASSIUM 4.7 mmol/L (3.5-5.1)
[2017-06-03 06:07] LABS: CREATININE 4.5 mg/dL (0.6-1.0)
[2017-06-03 07:42] VITALS: BP 137/97
[2017-06-03 12:01] VITALS: BP 167/85
[2017-06-03 13:30] VITALS: BP 167/85
[2017-06-03 15:06] VITALS: BP 188/89
[2017-06-03 19:55] VITALS: BP 178/90
[2017-06-04] VITALS (7 sets, daily range): BP systolic 118–188; BP diastolic 52–93
[2017-06-05 04:25] VITALS: BP 180/87
[2017-06-05 05:27] LABS: CALCIUM 8.8 mg/dL (8.5-10.1); CREATININE 4.9 mg/dL (0.6-1.0); POTASSIUM 4.2 mmol/L (3.5-5.1)
[2017-06-05 05:30] LABS: HEMATOCRIT 24.4 % (37.0-47.0); HEMOGLOBIN 8.2 gm/dL (12.0-15.0); MCH 32.3 pg (26.0-34.0); MCHC 33.6 g/dL (28.0-37.0); MCV 96.2 fL (80.0-100.0); RBC 2.54 mil/uL (4.20-5.00); RDW 15.3 % (10.5-14.5); WBC 4.6 thou/uL (4.0-11.0)
[2017-06-05 06:37] VITALS: BP 131/61
[2017-06-05 08:09] VITALS: BP 165/90
[2017-06-05] MEDS ORDERED: CEFUROXIME500 MG PO (11:24)
[2017-06-05 11:36] VITALS: BP 123/65
[2017-06-05 12:17] VITALS: BP 167/85
== END 2017-06-05 14:06 | disposition home or self-care (01) | DRG 291 ==
LOC: ER 14:30 → 2N 16:08 → EROBS 16:08 → 2N 17:22
PROVIDERS: Emergency Medicine; Hospitalist; Internal Medicine Nephrology; Nurse Practitioner
PROC: 5A1D70Z Performance of Urinary Filtration, Intermittent, Less than 6 Hours Per Day (ICD-10-PCS; principal; 2017-06-01)
PROC: 5A1D70Z Performance of Urinary Filtration, Intermittent, Less than 6 Hours Per Day (ICD-10-PCS; 2017-06-03)
PROC: 5A1D70Z Performance of Urinary Filtration, Intermittent, Less than 6 Hours Per Day (ICD-10-PCS; 2017-06-04)
DX: I13.2 Hypertensive heart and chronic kidney disease with heart failure and with stage 5 chronic kidney disease, or end stage renal disease (principal); N18.6 End stage renal disease; J90 Pleural effusion, not elsewhere classified; Z94.0 Kidney transplant status; Z94.83 Pancreas transplant status; E87.70 Fluid overload, unspecified; E10.22 Type 1 diabetes mellitus with diabetic chronic kidney disease; E10.42 Type 1 diabetes mellitus with diabetic polyneuropathy; E10.319 Type 1 diabetes mellitus with unspecified diabetic retinopathy without macular edema; I50.9 Heart failure, unspecified; E87.5 Hyperkalemia; I16.0 Hypertensive urgency; F41.9 Anxiety disorder, unspecified; D63.8 Anemia in other chronic diseases classified elsewhere; N25.0 Renal osteodystrophy; E10.65 Type 1 diabetes mellitus with hyperglycemia; Z91.19 Patient's noncompliance with other medical treatment and regimen; Z85.3 Personal history of malignant neoplasm of breast; Z88.8 Allergy status to other drugs, medicaments and biological substances; Z83.3 Family history of diabetes mellitus; Z79.899 Other long term (current) drug therapy
CPT/HCPCS: 10081; 32100

== ENCOUNTER 2017-09-24 09:56 | Emergency (ER) | payer OTHER, MEDICARE ==
[~2017-09-24] VITALS: Ht 175.3 cm; Wt 60.8 kg
--- NOTE | ~2017-09-24 | EKG ---
[place] [address] [employer] [facility] [place] [address] ELECTROCARDIOGRAM REPORT Name: DANY SYED Room #: DEP [facility]#: [id number] Admission: 09/24/17 Attend Phys: Discharge: 09/24/17 Date of : 62 Report #: [id number] THIS REPORT FOR: //name// [facility] ED Test Date: 2017-09-24 Test Time: 10:37:57 Pat Name: DANY SYED Department: Room: Gender: F Business System Manager: Jayy ARTEAGA : 1960 Requested By: Mandi Raymond Order Number: [id number] MD: Bradly Escobar Measurements Intervals [place] Rate: 69 P: 37 IN: 121 QRS: 10 QRSD: 100 T: 54 QT: 455 QTc: 488 Interpretive Statements Sinus rhythm Borderline prolonged QT interval Baseline wander in lead(s) II,V1,V4,V5 Compared to ECG 06/01/2017 15:45:36 No significant changes Electronically Signed On 09-26-2017 8:26:02 CDT by Bradly Escobar [email or web address] <ELECTRONICALLY SIGNED> By: Bradly Escobar MD, [facility] 09/26/17825 1037 1037 Bradly Escobar MD, [facility] /EPI
[~2017-09-24 09:56] MED LIST changes: +CEFUROXIME500 MG PO
[2017-09-24 11:09] LABS: ABSOLUTE NEUTROPHILS 2.9 thou/uL (1.4-8.2); EOSINOPHILS 4.3 % (0.0-3.0); HEMATOCRIT 29.5 % (37.0-47.0); LYMPHOCYTES 14.6 % (24.0-44.0); MCH 31.1 pg (26.0-34.0); MCV 91.6 fL (80.0-100.0); MONOCYTES 9.7 % (1.0-8.0); PLATELET COUNT 256 thou/uL (150-400); POLYS 70.4 % (36.0-66.0); RBC 3.22 mil/uL (4.20-5.00); WBC 4.1 thou/uL (4.0-11.0)
[2017-09-24 11:18] LABS: CALCIUM 8.8 mg/dL (8.5-10.1); CREATININE 3.2 mg/dL (0.6-1.0); POTASSIUM 3.3 mmol/L (3.5-5.1)
[2017-09-24 11:26] LABS: ALBUMIN 3.8 g/dL (3.4-5.0); TOTAL BILIRUBIN 0.6 mg/dL (<0.1-1.0); TOTAL PROTEIN 7.7 g/dL (6.4-8.2); TROPONIN-I 0.07 ng/mL (<0.06)
[2017-09-24] MEDS ORDERED: HYDROCODONE-AP1 EAC6 PO ×2 (11:42→11:50)
[2017-09-24] MEDS ORDERED: NORFLEX100 MG PO ×2 (11:42→11:50)
[2017-09-24] MEDS ORDERED: PHENERGAN 25 MG25 M1 PO (11:55)
== END 2017-09-24 12:23 | disposition home or self-care (01) ==
LOC: ER 09:56
PROVIDERS: Physician Assistant
DX: M43.6 Torticollis (principal); R07.89 Other chest pain; G62.9 Polyneuropathy, unspecified; E10.319 Type 1 diabetes mellitus with unspecified diabetic retinopathy without macular edema; E10.40 Type 1 diabetes mellitus with diabetic neuropathy, unspecified; E10.22 Type 1 diabetes mellitus with diabetic chronic kidney disease; I12.0 Hypertensive chronic kidney disease with stage 5 chronic kidney disease or end stage renal disease; N18.5 Chronic kidney disease, stage 5; Z99.2 Dependence on renal dialysis; Z94.0 Kidney transplant status; Z95.5 Presence of coronary angioplasty implant and graft; Z85.3 Personal history of malignant neoplasm of breast; Z90.13 Acquired absence of bilateral breasts and nipples; Z88.8 Allergy status to other drugs, medicaments and biological substances

== ENCOUNTER → 2017-10-04 | Outpatient (CLI) | payer OTHER, MEDICARE ==
[~2017-10-04] MED LIST changes: +HYDROCODONE-AP1 EAC6 PO; +NORFLEX100 MG PO; +PHENERGAN 25 MG25 M1 PO
== END ==
LOC: MRI 12:06
DX: H53.9 Unspecified visual disturbance (principal); R51 Headache; R11.0 Nausea; I10 Essential (primary) hypertension; Z85.3 Personal history of malignant neoplasm of breast

== ENCOUNTER 2018-01-06 10:49 | Emergency (ER) | payer OTHER, MEDICARE ==
[~2018-01-06] VITALS: Ht 175.3 cm; Wt 59.9 kg
--- NOTE | ~2018-01-06 | EKG ---
[place] [address] [facility] [place] [address] ELECTROCARDIOGRAM REPORT Name: DANY SYED [id number] Admission: 01/06/18 Attend Phys: Discharge: Date of : 62 Report #: [id number] THIS REPORT FOR: //name// [facility] ED Test Date: 2018-01-06 Test Time: 11:32:01 Pat Name: DANY SYED Department: Room: Gender: F Cath Laboratory Technician: KKODJOFRANK : 1960 Requested By: Tyrell Burch Order Number: [id number] MD: Johny Thompson Measurements Intervals [place] Rate: 70 P: 19 LA: 153 QRS: -24 QRSD: 95 T: 78 QT: 432 QTc: 467 Interpretive Statements Sinus rhythm Leftward axis Poor R wave progression Non specific ST/T wave changes Compared to ECG 09/24/2017 10:37:57 No significant changes Electronically Signed On 01-06-2018 13:35:30 ENROBING MACHINE CORDER by Johny Thompson [email or web address] <ELECTRONICALLY SIGNED> By: Johny Thompson MD 01/06/18 1335 31 31 Johny Thompson MD /YARELY
[2018-01-06 11:57] LABS: ABSOLUTE NEUTROPHILS 3.6 thou/uL (1.4-8.2); BASOPHILS 0.3 % (0.0-2.0); EOSINOPHILS 7.5 % (0.0-3.0); HEMATOCRIT 31.3 % (37.0-47.0); HEMOGLOBIN 10.7 gm/dL (12.0-15.0); MCH 32.9 pg (26.0-34.0); MCHC 34.1 g/dL (28.0-37.0); MCV 96.4 fL (80.0-100.0); MONOCYTES 9.4 % (1.0-8.0); PLATELET COUNT 240 thou/uL (150-400); POLYS 68.8 % (36.0-66.0); RBC 3.24 mil/uL (4.20-5.00); RDW 15.2 % (10.5-14.5); WBC 5.3 thou/uL (4.0-11.0)
[2018-01-06 12:04] LABS: CALCIUM 9.3 mg/dL (8.5-10.1); CREATININE 6.8 mg/dL (0.6-1.0); POTASSIUM 5.9 mmol/L (3.5-5.1)
[2018-01-06 12:12] LABS: ALBUMIN 3.4 g/dL (3.4-5.0); TOTAL BILIRUBIN 0.5 mg/dL (<0.1-1.0); TROPONIN-I 0.22 ng/mL (<0.06)
[2018-01-06 14:25] VITALS: BP 181/101
== END 2018-01-06 14:25 | disposition home or self-care (01) ==
LOC: ER 10:49
PROVIDERS: Physician Assistant
DX: I12.0 Hypertensive chronic kidney disease with stage 5 chronic kidney disease or end stage renal disease (principal); N18.5 Chronic kidney disease, stage 5; R53.1 Weakness; E87.5 Hyperkalemia; I89.0 Lymphedema, not elsewhere classified; E10.40 Type 1 diabetes mellitus with diabetic neuropathy, unspecified; E10.22 Type 1 diabetes mellitus with diabetic chronic kidney disease; Z88.8 Allergy status to other drugs, medicaments and biological substances; Z94.0 Kidney transplant status; Z85.3 Personal history of malignant neoplasm of breast; Z90.13 Acquired absence of bilateral breasts and nipples

== ENCOUNTER 2018-10-01 17:31 | Inpatient (IN) | payer OTHER, MEDICARE ==
[~2018-10-01] VITALS: Ht 175.3 cm; Wt 63.0 kg
[2018-10-01 17:44] VITALS: BP 225/109
[2018-10-01] MEDS ORDERED: SYNTHROID200 MCG PO (17:50)
[2018-10-01 18:16] LABS: ABSOLUTE NEUTROPHILS 11.1 thou/uL (1.4-8.2); BASOPHILS 0.7 % (0.0-2.0); EOSINOPHILS 0.5 % (0.0-3.0); HEMATOCRIT 35.5 % (37.0-47.0); HEMOGLOBIN 11.3 gm/dL (12.0-15.0); LYMPHOCYTES 3.7 % (24.0-44.0); MCH 28.4 pg (26.0-34.0); MCHC 31.9 g/dL (28.0-37.0); MCV 88.9 fL (80.0-100.0); MONOCYTES 7.4 % (1.0-8.0); PLATELET COUNT 327 thou/uL (150-400); POLYS 87.7 % (36.0-66.0); RBC 3.99 mil/uL (4.20-5.00); RDW 17.9 % (10.5-14.5); WBC 12.7 thou/uL (4.0-11.0)
[2018-10-01 18:27] LABS: ALBUMIN 2.9 g/dL (3.4-5.0); CREATININE 5.5 mg/dL (0.6-1.0); POTASSIUM 5.9 mmol/L (3.5-5.1); TOTAL BILIRUBIN 0.6 mg/dL (<0.1-1.0); TOTAL PROTEIN 7.2 g/dL (6.4-8.2)
[2018-10-01 18:30] LABS: BE(vivo) -7.2 mmol/L (-2 to +3); PCO2 VENOUS 35.3 mmHg (41.0-51.0); PO2 VENOUS 54.8 mmHg (35.0-45.0)
--- NOTE | 2018-10-01 19:07 | NUR ---
[facility]
[2018-10-01 21:45] VITALS: BP 199/107
[2018-10-01 22:00] LABS: CALCIUM 8.8 mg/dL (8.5-10.1); CREATININE 5.7 mg/dL (0.6-1.0); POTASSIUM 5.8 mmol/L (3.5-5.1)
--- NOTE | 2018-10-01 22:05 | NUR ---
PATIENT DENIES INGESTING ANY SUGAR DURING THIS EMERGENCY ROOM VISIT. PREPARING FOR INPATIENT VISIT
[2018-10-01 22:13] VITALS: BP 214/106
[2018-10-01 23:25] VITALS: BP 197/106
[2018-10-02 00:02] VITALS: BP 198/91
--- NOTE | 2018-10-02 01:19 | NUR ---
PATIENT WAS A NEW ADMISSION TO THE UNIT THIS SHIFT. SHE ARRIVED VIA CART FROM THE EMERGENCY ROOM AND WAS ABLE TO AMBULATE TO BED WITH ASSISTANCE INCIDENT FREE. PATIENT IS ALERT AND ORIENTED BUT HIGHLY ANXIOUS, FRUSTRATED AND SOMEWHAT NON COMPLIANT WITH ADMISSION PROCESS. PATIENT IS INSISTENT ON EATING AND DRINKING THINGS THAT WILL FURTHER RAISE THE LEVEL OF HER CRITICALLY HIGH BLOOD SUGAR. NURSE ATTEMPTED TO EDUCATE PATIENT WHICH PATIENT REFUSED. NURSE TO COMPLETE ADMISSION AND INITIATE PLAN OF CARE.
[2018-10-02 02:58] VITALS: BP 200/104
[2018-10-02 04:16] VITALS: BP 146/74
[2018-10-02 07:23] VITALS: BP 160/81
--- NOTE | 2018-10-02 07:36 | NUR ---
AROUND 0630 NURSE WAS ASKED TO ASSESS BLOOD SUGAR FROM THE PATIENT. PATIENTS BLOOD SUGAR REGISTERED "HI" INDICATING THAT IT WAS HIGHER THAN 500. PATIENT CONTACTED SOCIAL WELFARE CLERK GRANT TO INFORM HER OF SITUATION WELL PUT IN FOR STAT LAB GLUCOSE DRAW. NURSE WAS ALSO GIVEN INSTRUCTIONS FROM SOCIAL WELFARE CLERK WHICH WERE PASSED ON TO ONCOMING RN. PATIENT IS TO DIALYZE TODAY POTENTIALLY FURTHER COMPLICATING SITUATION. PATIENTS STAT GLUCOSE RETURNED CRITIACLLY HIGH 692. DOCTOR KASI HAS BEEN CONTACTED AND HAS STATED THAT HE WILL PUT IN ORDERS FOR TREATMENT. NURSE TO BE INFORMED OF SITUATION.
[2018-10-02 08:59] LABS: ANION GAP 17 mmol/L (7-16); BUN 105 mg/dL (7-18); CALCIUM 8.7 mg/dL (8.5-10.1); CHLORIDE 89 mmol/L (98-107); CO2 17 mmol/L (21-32); CREATININE 6.1 mg/dL (0.6-1.0); SODIUM 123 mmol/L (136-145)
[2018-10-02 09:00] LABS: BE(vivo) -9.9 mmol/L (-2 to +3); HCO3 15.8 mmol/L (22.0-26.0); PCO2 33.8 mmHg (35.0-45.0); PO2 81.1 mmHg (80.0-100.0); sO2 94.8 % (92.0-98.0)
[2018-10-02 09:01] LABS: pH 7.287 (7.360-7.450)
[2018-10-02 09:07] LABS: GLUCOSE 698 mg/dL (74-106); POTASSIUM 6.1 mmol/L (3.5-5.1)
--- NOTE | 2018-10-02 13:32 | NUR ---
WOUND CARE CONSULT; NO WOUNDS WERE IDENTIFIED. THE RIGHT FOOT WOUND WAS ONLY SCABBED. RECOMMENDTION; NONE RECONSULT IF NEEDED. DISCUSSED WITH STAFF
--- NOTE | 2018-10-02 14:17 | NUR ---
INITIAL ASSESSMENT: Received consult for discharge planning. SW reviewed chart and spoke with nursing and attending physician. Pt was admitted from home due to uncontrolled DM. Pt with hx of ESRD and dialyzes at [facility] 2nd shift. Pt currently off the unit having dialysis. Endocrinology consulted. Per chart, pt normally lives at home alone. Pt has been to [facility] SN[facility] in March of 2017. Pt's sister is supportive and involved with pt's care. SW to follow up with pt at a later time. SW is following to assist as needed with discharge planning.
--- NOTE | 2018-10-02 14:42 | NUR ---
DISCHARGE PLANNING. PATIENT [facility]YS[facility]. CLINICAL INFORMATION FAXED TO [facility] FOR [facility]. VERIFIED CLINICALS RECEIVED. FOLLOWING.
[2018-10-02 16:16] VITALS: BP 146/75
[2018-10-02 19:15] VITALS: BP 152/77
--- NOTE | 2018-10-02 19:23 | NUR ---
PT VERY NONCOMPLIANT AND MANIPULITIVE...SHE DOES NOT WANT TO EAT MEALS AT SCHEDULED TIMES...VERY IMPULSIVE AND UNCOOPERATIVE...
[2018-10-03 04:14] VITALS: BP 176/85
--- NOTE | 2018-10-03 06:02 | NUR ---
DURING 2100 ASSESSMENT PT EXHIBITS ANXIETY MAINLY ABOUT HER BLOOD SUGARS AND MANAGEMENT OF IT. PT REFUSES TO FOLLOW THE POC AND DICTATES HOW MANY UNITS SHE WILL TAKE. PT IS WANTING TO BE WOKEN UP TO TAKE ACCU CHECKS AT 2400 AND 0500. 2100 BS WAS 150, WITH NO SHORT ACTING GIVEN, AND ONLY 4 UNITS OF LANTUS GIVEN. 0600 BS WAS 182. VSS, AND NO COMPLAINTS OF NAUSEA OR HEADACHE THIS AM. HOURLY ROUNDING.
[2018-10-03 07:21] VITALS: BP 176/74
--- NOTE | 2018-10-03 08:07 | HC ---
[facility] [place] [address] CONSULTATION Name: DANY SYED Room #: 350-P ADM IN M.R.#: [id number] Admission: 10/01/18 ������������������ Attend Phys: Cayden Prather MD Discharge: ������������������ Date of : 62 Report #: [id number] THIS REPORT FOR: //name// CC: FAM physician/PCP Cayden Prather DATE OF SERVICE: 10/02/2018 ENDOCRINE CONSULTATION CONSULTING PHYSICIAN: Ciro Fulton MD REASON FOR CONSULTATION: Uncontrolled type 1 diabetes mellitus, hypothyroidism. HISTORY OF PRESENT ILLNESS: This is a 58-year-old female patient whose medical background is significant for type 1 diabetes mellitus was diagnosed at the age of 11. The patient's course had been complicated by end-stage renal disease as she actually had a kidney transplant done in 1993, but then went again into end-stage renal disease in 2007 that required hemodialysis since then. Also, she had a pancreas transplant in 2000 that worked well until 2005 when she had to go back to insulin therapy. Currently, the patient is on a regimen of NovoLog 5-6 units t.i.d. a.c., but notes that she is inconsistent when it comes to the intake of basal insulin and has actually used Humulin N off and on over the past few weeks. The patient notes that her blood glucose values have been mostly in the very high range with many blood glucose values running above 400 mg/dL. She also notes that she would have occasional hypoglycemia, some of which severe and resulting in the need for third democrat assistance; however, this does not happen frequently. The patient's background is also noted for a peripheral diabetic neuropathy, mostly affecting her feet, as well as retinopathy requiring bilateral eye laser surgery. However, she has not had much followup for her eyes over the past few years. Moreover, the patient was diagnosed with hypothyroidism 2 years ago in the context of chemotherapy that she has received for breast cancer. She notes that she has had significant difficulties controlling her thyroid status and that her TSH was over 150 on diagnosis and that her last one was over 50 in the outpatient setting. She is currently on levothyroxine 200 mcg daily and notes that she takes it day or night, but is able to take it on most days. The patient's background is also noted for hypertension and she is on amlodipine as needed as well as carvedilol 12.5 mg b.i.d. and hydralazine. REVIEW OF SYSTEMS: CONSTITUTIONAL: Fatigue, tiredness, but no fever or chills. PULMONARY: Occasional shortness of breath and cough, but no hemoptysis. [address] [address] CONSULTATION Name: DANY SYED Room #: [address] [place] [address] IN M.R.#: [id number] Admission: 10/01/18 ������������������ Attend Phys: Cayden Prather MD Discharge: ������������������ Date of : 62 Report #: [id number] CARDIAC: Negative for chest pain, palpitations, syncope or presyncope, but noted for lower extremity edema. GASTROINTESTINAL: Noted for occasional abdominal distention, nausea, but no vomiting. No hematemesis or significant changes in bowel movement frequency. NEUROLOGIC: Negative for loss of consciousness, headaches or seizures, but noted for ongoing issues with peripheral neuropathy affecting her feet. SKIN: Negative for ulceration, discoloration or itching. PSYCHIATRIC: Negative for delusions or hallucinations. ENDOCRINE: Noted for type 1 diabetes mellitus and hypothyroidism as noted above. HEENT: Negative for epistaxis, sinus congestion. Otherwise, review of systems noncontributory other than those mentioned in HPI. PAST MEDICAL HISTORY: 1. Type 1 diabetes mellitus, uncontrolled. 2. Hypothyroidism. 3. Hypertension. 4. End-stage renal disease requiring hemodialysis. 5. History of breast cancer. 6. Diabetic retinopathy. 7. Diabetic neuropathy. OUTPATIENT MEDICATIONS: Include NovoLog insulin 5-6 units t.i.d. a.c., Humulin N as needed at a dose of 6 units daily when taken, levothyroxine 200 mcg daily, amlodipine 10 mg daily p.r.n., carvedilol 12.5 mg b.i.d. and hydralazine. ALLERGIES: EPINEPHRINE. FAMILY HISTORY: Noncontributory. SOCIAL HISTORY: The patient denies use of tobacco. Drinks alcohol only socially, does not have children. Lives by herself. PHYSICAL EXAMINATION: GENERAL: A pleasant female patient who seems tired and was actually sleeping when I showed up to her dialysis session, but was easily arousable. She is not in apparent distress. VITAL SIGNS: Blood pressure is 160/81 mmHg, heart rate is 63 beats per minute, respiration 18 per minute, she is afebrile. HEENT: Pale conjunctivae, anicteric sclerae. Intact extraocular motions. NECK: Supple, without JVD, carotid bruits, or lymphadenopathy. I do not appreciate thyromegaly. CHEST: Clear to auscultation with moderate air entry bilaterally with scattered rales, but no wheezes. HEART: Regular rate and rhythm without murmurs or gallops. ABDOMEN: A bit distended, but not tense, nontender. No organomegaly. Active [facility] [address] [place] [address] CONSULTATION Name: DANY SYED Room #: 350-P ADM IN .R.#: [id number] Admission: 10/01/18 ������������������ Attend Phys: Cayden Prather MD Discharge: ������������������ Date of : 62 Report #: [id number] bowel sounds. EXTREMITIES: Lower extremity exam, no edema, skin breaks or ulcerations, but stasis dermatitis is noted over both lower extremities. NEUROLOGIC: Awake, alert and oriented to time, place and person. The remainder of examination is nonfocal other than diminished sensation over both lower extremities. SKIN: Noted for stasis dermatitis over both lower extremities, but no ulcerations. PSYCHIATRIC: Pleasant, interactive, appropriate. Normal mood and affect. LABORATORY RESULTS: White blood count 12.7, hemoglobin 11.3, hematocrit 35.5, platelets 327. Sodium 123, potassium 6.1, chloride 89, carbon dioxide 17, anion gap 17, BUN 105, creatinine 6.1, GFR 7, glucose on arrival was 698 mg/dL, glucose checked just before this dictation was 451 mg/dL. Calcium 8.7. TSH 28.036. Hemoglobin A1c is 8.2%. ASSESSMENT AND PLAN: 1. Type 1 diabetes mellitus, uncontrolled. As noted in HPI, the patient has had a longstanding history of type 1 diabetes mellitus that is complicated by multiple microvascular complications including end-stage renal disease, retinopathy and neuropathy. The patient's most recent insulin regimen at home is not ideal and that it sidesteps basal insulin to a large extent, thus setting the patient up for a sustained hyperglycemia. While the patient's hemoglobin A1c of 8.2% does not indicate severe hyperglycemia over the past few months, it certainly is falsely lowered by her end-stage renal disease and ongoing hemodialysis. The patient's blood glucose on presentation was severely elevated. That said, one should keep in mind that the patient is highly sensitive to insulin compared to a type 1 diabetic and therefore, I would approach her cautiously when it comes to initiating basal insulin and I will do so in the form of Lantus insulin 14 units daily in addition to coverage for meals with Humalog 5 units t.i.d. a.c., support by low intensity Humalog supplemental scale. Blood glucose monitoring will continue a.c. and at bedtime, so as to help us adjust her regimen as needed. I stressed the importance of adequate glycemic control in the inpatient setting as well as to maintain that in the outpatient setting, which the patient seemed to understand very well. 2. Hypothyroidism. Historically, this has been uncontrolled right from diagnosis when her TSH was reportedly at 150. Her most recent outpatient TSH was over 50 and it remains uncontrolled during this admission at 28. On further discussion, it seems that the patient is taking her levothyroxine in an inconsistent fashion whereby she would take it either in the daytime or at nighttime [place] [address] CONSULTATION Name: DANY SYED LANEY Room #: 350-P [facility] IN M.R.#: [id number] Admission: 10/01/18 ������������������ Attend Phys: Cayden Prather MD Discharge: ������������������ Date of : 62 Report #: [id number] whether or not her stomach is empty and without necessarily waiting half an hour to an hour before she eats again. This mode of intake is candidate to have her lose 50% or greater of the efficacy of her levothyroxine dose. I discussed this in detail with the patient and I explained that the intake of levothyroxine and the intended manner is likely to improve the efficacy quite significantly. The patient's current dose of 200 mcg daily is much larger than one would expect for her body weight and this could be explained again by losing a significant portion of her dosage due to the suboptimal method of intake. That said, I would like to continue with the current dose, but work towards improving the methodology of intake to benefit to the utmost degree from her current dosage. The patient understands this approach and agrees to it. 3. Hypertension. Blood pressure control remains inadequate, the patient is under the care of the Nephrology team and I will defer this prior to them. She currently remains on amlodipine and hydralazine. 4. Diabetic retinopathy. There seems to be a significant history of diabetic retinopathy and the patient was counseled about the need to maintain followup with her hvac services professional, which she has not done. She expressed her understanding of this aspect. 5. End-stage renal disease. The patient is undergoing hemodialysis today. She is under the care of the Nephrology team. I certainly appreciate this consultation by Dr. Fulton. ��������������������������������������������� <ELECTRONICALLY SIGNED> ���������������������������������������� By: Kiara Jordan MD ��������������������������������������������� 10/03/18 0807 [id number] 1500 Kiara Jordan MD /nt
[2018-10-03 09:10] LABS: GLYCOHEMOGLOBIN (HGB A1C) 11.1 % (4.8-5.6)
--- NOTE | 2018-10-03 15:51 | NUR ---
PT VERY NONCOMPLIANT WITH MEALS,FLUID RESTRICTIONS AND INSULIN SCHEDULE. SHE EATS AT NON MEAL TIMES AND TAKES HER OWN INSULIN DOSES THAT SHE REQUESTS...
[2018-10-03 16:12] VITALS: BP 156/83
[2018-10-03 19:07] VITALS: BP 181/94
--- NOTE | 2018-10-03 22:07 | NUR ---
DURING ASSESSMENT PT STATES SHE HAS A HEADACHE AND TAKES ALLEVE AT HOME AND IT WORKS, UNLIKE TYLENOL. CALLED BUS WASHER SABIHA AND GOT ONE TIME DOSE. WILL CONTINUE TO MONITOR AND ASSESS.
[2018-10-04] VITALS (7 sets, daily range): BP systolic 141–208; BP diastolic 84–104
--- NOTE | 2018-10-04 02:35 | NUR ---
PT STILL TRYING TO BE HER OWN WORST ENEMY WITH BLOOD SUGARS. SHE REFUSES TO TAKE SCHEDULED DOSES AT TIME AND REQUEST IT BE LATER, THEN REFUSING THE SHORT ACTING. PT CANNOT PROGRESS TOWARDS DC GOALS AND EXPECT FAVORABLE RESULTS. IT COULD POSSIBLY BENEFIT FROM A PSYCH CONSULT FOR MALADAPTIVE BEHAVIORS. BLOOD SUGARS RAN TODAY FROM 160-468. PT WANTING PUDDING, MILK AND CEREAL, BOX SANDWICH TRAY. HOURLY ROUNDING.
--- NOTE | 2018-10-04 10:25 | NUR ---
PATIENT SEEN BY KRISHNA ANSARI NP WITH DR. BRIONES. PATIENT IS NOT A CANDIDATE FOR ACUTE REHAB DUE TO BEING AT TOO HIGH OF A FUNCTIONAL LEVEL. THANK YOU FOR THIS REFERRAL.
--- NOTE | 2018-10-04 14:13 | NUR ---
SW reviewed chart and spoke with nursing and attending physician. Pt is progressing towards goals for discharge. Pt had dialysis earlier today. 5N evaluated pt yesterday for possible admission to inpt acute rehab. Pt appears to be too high level for 5N. SW met with pt at bedside to discuss discharge plan. Pt states she does not feel like she needs inpt acute rehab, and she would prefer to do outpatient therapy at [facility]. Discharge home is anticipated for tomorrow. Pt will resume her regular outpatient dialysis at [facility]. Will need script for outpatient therapy. Pt to coordinate therapy in the afternoons, which will work for her schedule. AQUILINO is following to assist as needed with discharge planning.
--- NOTE | 2018-10-04 20:24 | NUR ---
PT CONTINUES TO BE VERY DIFFICULT AND NONCOMPLIANT...SHE REFUSES TO STAY ON SCHEDULE WITH HER MEALS AND INSULIN..SHE OFTEN WILL EAT BREAKFAST A FEW HOURS AFTER TRAY IS DELIVERED AND THEN SKIP LUNCH... SHE BARGAINS WITH WHAT DOSE SHE WILL TAKE...SHE REFUSED OT/PT TODAY AND KEEPS CHANGING HER MIND ABOUT WANTING TO GO TO 5N AND WANTING TO GO TO OUTPATIENT REHAB...I SPOKE WITH HER SISTER YUNI AT [facility] AND SHE STATES HER SISTER WOULD BENEFIT FROM A PSYCH CONSULT BECAUSE SHE HAS BEEN VERY DIFFICULT AND NONCOMPLAINT SINCE ABOUT AGE 15..SISTER IS EXHAUSTED TRYING TO HELP OUT PATIENT AND THEIR MOM WHO IS IN A FACILTY...SISTER DOES NOT FEEL IT IN PATIENTS JOSEPH INTEREST TO GO HOME WITHOUT HELP...
[2018-10-05 03:38] VITALS: BP 169/82
--- NOTE | 2018-10-05 06:30 | NUR ---
Pt. requested alprazolam at HS to help with her anxiety which she stated helped. She slept most of the night. Able to turn herself from side to side. Denies any pain. No nausea or vomiting. Bed alarm for safety. PRN BP med given at HS then this am. Sister called with concern that pt. may not be ready for discharge. Will communicate to day RN. Making progress towards care plan goals.
[2018-10-05 08:13] VITALS: BP 154/86
--- NOTE | 2018-10-05 15:07 | NUR ---
AQUILINO reviewed chart and spoke with nursing and attending physician. Pt is progressing towards goals for discharge. 5N rehab physician's PATENT LITIGATION ASSOCIATE met with pt to discuss that pt is too high level for inpt acute rehab. Script written for pt to go to outpatient therapy. SW met with pt at bedside to provide update. Pt states she is not feeling well today. SW received message to call pt's sister, Elaina. Pt gave SW permission to contact Elaina. AQUILINO left voice message for Elaina ([phone]). Anticipate discharge home tomorrow with outpatient therapy. AQUILINO is following to assist as needed with dishcarge planning.
[2018-10-05 16:33] VITALS: BP 212/106
[2018-10-05 17:28] VITALS: BP 173/87
[2018-10-05 19:05] VITALS: BP 169/89
--- NOTE | 2018-10-05 19:38 | NUR ---
care of pt assumed this am @ ~0700. pt noted to be restless and frustrated this am due to the fact that she was not given "real sugar" with coffee. pt noted to verbalize and behaviors seen by rn that she is non compliant w/ her diabetes (medications, food consumed and activity). pt attempted to manipulate numerous staff members to get what she wants (food, liquids, doing things for her that she should be doing for herself) throughout the day. pt w/ a fickle, poor to fair appetite for our meals served to her, calling dietary to personalize her meals (w/ some frustration as they will not always give her what she requests), but noted to have other foods (personal stash) that she snacks on througout the day. pt refusing to sit up in her chair today, only out of bed w/ ot for a bath in the bathroom this am and out of bed to ambulate w/ pt in the hallway. pt co headache today, pt noted to have episodes of htn, she states that htn is normal for her. pt aware of dialysis scheduled for tomorrow w/ possible dc home and outpt rehab at [facility] (her choice). pt visited by her sister early evening.
[2018-10-06 03:47] VITALS: BP 172/90
--- NOTE | 2018-10-06 06:36 | NUR ---
Pt. requested anxiety med at and stated it helped. She slept well during the night and woke up this am in a very good mood. PRN BP med given for elevated BP. Denies being in pain. prohressing towards care plan goals.
[2018-10-06 07:40] VITALS: BP 168/82
[2018-10-06] MEDS ORDERED: COREG6.25 MG PO (08:35)
[2018-10-06] MEDS ORDERED: NOVOLOG100 UNIT/1 SUBQ ×2 (08:35)
[2018-10-06] MEDS ORDERED: LANTUS100 UNIT/M SUBQ (08:35)
[2018-10-06 12:50] VITALS: BP 140/70
--- NOTE | 2018-10-06 14:05 | NUR ---
pt is A&ox3, pt is cooperative, pt came back from HD dialysis about 1300pm, pt is tolerative dialysis , removed 3500ml fliud, pt's vs and BS are stable at this time, RN has called dr about pt refused lunch time insulin, pt may d/c to home today.
[2018-10-06 14:23] VITALS: BP 140/70
--- NOTE | 2018-10-06 15:27 | NUR ---
DISCHARGE NOTE: SW reviewed chart and spoke with nursing and attending physician. Pt is medically stable for discharge home today. Pt's sister at the hospital to provide transportation home. SW spoke with pt's sister, Elaina, via phone last evening to discuss discharge plan. SW explained that pt does not qualify for 5N. Pt's dtr verbalized understanding. logistics planner faxed info to Martha OCONNELL. Pt to schedule her own outpatient therapy at [facility]. No additional SW needs identified at this time, but is available to assist should needs arise.
--- NOTE | 2018-10-10 09:22 | HC ---
[facility] [place] [address] CONSULTATION Name: DANY SYED Room #: 350-P [facility] IN M.R.#: [id number] Admission: 10/01/18 ������������������ Attend Phys: Cayden Prather MD Discharge: 10/06/18 ������������������ Date of : 62 Report #: [id number] THIS REPORT FOR: //name// CC: [facility] physician/PCP Cayden Prather REASON FOR CONSULTATION: End-stage renal disease REASON FOR PRESENTATION: Not feeling well, facial swelling, right upper extremity swelling, elevated blood sugar. HISTORY OF PRESENT ILLNESS: This is a very well-known patient to me. She is an end-stage renal disease patient who is maintained on hemodialysis every Tuesday, Tuesday and Tuesday. Unfortunately, she has extreme noncompliance with diet and salt restrictions. She was recently hospitalized at [facility] for fluid overload and significant pleural effusion. This has improved significantly with significant improvement in her edema as we followed an aggressive dialysis and ultrafiltration regimen. She presented to the Emergency Room reporting that she recently had steroid shots. This has resulted in a significant elevation of her blood sugar. She also reported to significant right upper extremity swelling, which is chronic. 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 I am being consulted to manage her end-stage renal disease issues. PAST MEDICAL HISTORY: 1. Diabetes mellitus. 2. All diabetic complications including diabetic retinopathy, gastroparesis, neuropathy. 3. Remote history of kidney and pancreas transplant, back on dialysis. 4. Breast cancer, post-mastectomy. 5. Hypertension. 6. Hyperparathyroidism. ALLERGIES: EPINEPHRINE causes her heart to race. FAMILY HISTORY: Significant for diabetes mellitus. SOCIAL HISTORY: Single. Denies drug or alcohol abuse. REVIEW OF SYSTEMS: GENERAL: Significant for weakness. CARDIOVASCULAR: Denies chest pain, but has some shortness of breath. PULMONARY: Significant for shortness of breath. GASTROINTESTINAL: Significant for nausea and vomiting. MUSCULOSKELETAL: Diffuse myalgias. MEDICATIONS: [facility] [address] [place] [address] CONSULTATION Name: DANY SYED Room #: 350-P [facility] IN [facility].#: [id number] Admission: 10/01/18 ������������������ Attend Phys: Cayden Prather MD Discharge: 10/06/18 ������������������ Date of : 62 Report #: [id number] 1. Carvedilol. 2. Amlodipine. 3. Levothyroxine. 4. Lantus. PHYSICAL EXAMINATION: GENERAL: She is alert, oriented. VITAL SIGNS: Blood pressure is 160/81, temperature 36.4. Facial edema present. Right upper extremity swelling present. HEAD AND NECK: Elevated jugular venous pressure. CHEST: Decreased air entry bilaterally. CARDIOVASCULAR: Systolic murmur is present. ABDOMEN: Soft, nontender. EXTREMITIES: Lower extremities, no edema. SKIN: Bilateral mastectomies. LABORATORY DATA: Reviewed. White blood cell count 12.7. Sodium 123, potassium 6.1, BUN 105, creatinine 6.1. Blood sugar is in the 600 range. IMPRESSION AND PLAN: 1. End-stage renal disease. 2. Noncompliance. 3. Hypertensive urgency. 4. Hyperkalemia. 5. Hyponatremia. 6. Hypothyroidism. 7. We will arrange for the patient to have usual dialysis today. 8. Resume her blood pressure medications. 9. Endocrinology linux consultant to see for blood sugar control. 10. Extreme noncompliance including taking her thyroid medications, compromising her overall health condition. ��������������������������������������������� <ELECTRONICALLY SIGNED> ���������������������������������������� By: Ciro Fulton MD ��������������������������������������������� 10/10/18 0922 [id number] [id number] Ciro Fulton MD /nt
== END 2018-10-06 15:23 | disposition home or self-care (01) | DRG 637 ==
LOC: ER 17:31 → 3W 21:20 → EROBS 21:20 → 3W 22:17 → ENTRNSPT 10-06 15:06 → EDTRNSPTSTS 10-06 15:08 → 3W 10-06 15:23
PROVIDERS: Emergency Medicine; Internal Medicine; Nurse Practitioner Acute Care; ADMIT Hospitalist
PROC: 5A1D70Z Performance of Urinary Filtration, Intermittent, Less than 6 Hours Per Day (ICD-10-PCS; principal; 2018-10-02)
PROC: 5A1D70Z Performance of Urinary Filtration, Intermittent, Less than 6 Hours Per Day (ICD-10-PCS; 2018-10-03)
PROC: 5A1D70Z Performance of Urinary Filtration, Intermittent, Less than 6 Hours Per Day (ICD-10-PCS; 2018-10-04)
DX: E10.65 Type 1 diabetes mellitus with hyperglycemia (principal); N18.6 End stage renal disease; E87.1 Hypo-osmolality and hyponatremia; Z94.0 Kidney transplant status; Z94.83 Pancreas transplant status; I12.0 Hypertensive chronic kidney disease with stage 5 chronic kidney disease or end stage renal disease; I16.0 Hypertensive urgency; E10.319 Type 1 diabetes mellitus with unspecified diabetic retinopathy without macular edema; E10.22 Type 1 diabetes mellitus with diabetic chronic kidney disease; E03.9 Hypothyroidism, unspecified; I89.0 Lymphedema, not elsewhere classified; Z60.2 Problems related to living alone; Z91.14 Patient's other noncompliance with medication regimen; Z85.3 Personal history of malignant neoplasm of breast; Z88.8 Allergy status to other drugs, medicaments and biological substances; Z83.3 Family history of diabetes mellitus; Z82.3 Family history of stroke; Z79.899 Other long term (current) drug therapy; Z99.2 Dependence on renal dialysis
CPT/HCPCS: 10879; 32100